=== PATIENT | female | born 1990 | race Caucasian/White ===

== ENCOUNTER → 2020-12-24 08:14 | Outpatient (BNVA) | payer OTHER, SELFPAY | PROVIDERS: Visit Provider Obstetrics & Gynecology | DX: Z20.2 Contact with and (suspected) exposure to infections with a predominantly sexual mode of transmission (principal); Z12.4 Encounter for screening for malignant neoplasm of cervix; Z01.419 Encounter for gynecological examination (general) (routine) without abnormal findings | CPT/HCPCS: 87491; 87591; 87661; 88175 ==

== ENCOUNTER → 2021-07-03 12:25 | Outpatient (BNVA) | payer SELFPAY | PROVIDERS: Visit Provider Nurse Practitioner Family | DX: J06.9 Acute upper respiratory infection, unspecified (principal); Z20.822 Contact with and (suspected) exposure to COVID-19; U07.1 COVID-19; Z71.89 Other specified counseling | CPT/HCPCS: 87635 ==